=== PATIENT | male | born 1955 | race Caucasian/White ===

== ENCOUNTER 2018-05-30 16:00 | Emergency (ER) | payer BC ==
[~2018-05-30] VITALS: Ht 188 cm; Wt 86.2 kg
[2018-05-30] MEDS ORDERED: CODEINE (16:18)
[2018-05-30] MEDS ORDERED: AMOXICILLIN 500 MG (16:18)
[2018-05-30] MEDS ORDERED: ACETAMINOPHEN (16:18)
[2018-05-30] MEDS ORDERED: IBUPROFEN TAB 600MG (16:18)
[2018-05-30] MEDS ORDERED: OXYCOD/APAP TAB 10-325MG (16:18)
[2018-05-30] MEDS ORDERED: VALSARTAN 80 MG (16:18)
[2018-05-30] MEDS ORDERED: IV NORMAL SALINE 1000 ML BAG IV ONE ×2 (16:45→17:00)
[2018-05-30 17:04] LABS: BASOPHILS % (AUTO) 0.4 % (0.0-2.0); EOSINOPHILS # (AUTO) 0.4 K/uL (0.0-0.7); EOSINOPHILS % (AUTO) 4.3 % (0.0-7.0); HEMATOCRIT 37.9 % (36.7-47.1); HEMOGLOBIN 13.6 g/dL (12.5-16.3); LYMPHOCYTES # (AUTO) 0.6 K/uL (20.0-40.0); LYMPHOCYTES % (AUTO) 5.7 % (20.5-51.5); MEAN CORPUSCULAR HGB CONC 36 g/dL (32.5-36.3); MEAN CORPUSCULAR VOLUME 100.7 fL (73.0-96.2); MONOCYTES # (AUTO) 0.7 K/uL (2.0-10.0); MONOCYTES % (AUTO) 6.5 % (0.0-11.0); NEUTROPHILS # (AUTO) 8.4 K/uL (1.8-8.9); NEUTROPHILS % (AUTO) 83.1 % (38.5-71.5); PLATELET COUNT (AUTO) 125 K/uL (152-348); RED BLOOD CELL COUNT(AUTO) 3.77 MIL/uL (4.06-5.63); WHITE BLOOD COUNT (AUTO) 10.1 K/uL (3.6-10.2)
[2018-05-30 17:05] LABS: POTASSIUM 5.4 mmol/L (3.5-5.1)
[2018-05-30 17:10] LABS: BILIRUBIN,DIRECT 0.2 mg/dL (0.0-0.2); BILIRUBIN,TOTAL 0.8 mg/dL (0.2-1.0); TOTAL PROTEIN, SERUM 7.1 g/dL (6.4-8.2)
[2018-05-30 17:31] LABS: CREATINE KINASE, TOTAL 137 U/L (39-308)
--- NOTE | 2018-05-30 17:33 | NUR ---
Pt back from CT, NAD noted at this time.
--- NOTE | 2018-05-30 17:50 | NUR ---
Repeat labs drawn.
--- NOTE | 2018-05-30 18:05 | NUR ---
Pt ambulated to restroom with steady gait, stated he voided a good amount of urine without difficulty. Urine specimen obtained and sent to lab. Pt stated he felt much better and wants to go home.
[2018-05-30 18:07] LABS: CREATININE 1.7 mg/dL (0.6-1.3); POTASSIUM 5.2 mmol/L (3.5-5.1)
--- NOTE | 2018-05-30 18:15 | NUR ---
IV removed. Catheter intact and site benign. Pressure and 4x4 gauze applied to site. No bleeding noted.
[2018-05-30 18:19] LABS: *BILIRUBIN,URIN NEGATIVE (NEGATIVE); *BLOOD, URINE NEGATIVE (NEGATIVE); *CLARITY,URINE CLEAR (CLEAR); *COLOR,URINE YELLOW (YELLOW); *KETONES,URINE NEGATIVE (NEGATIVE); *PROTEIN,URINE NEGATIVE (NEGATIVE); *UROBILINOGEN,URINE 0.2 E.U./dl (NORMAL); LEUKOCYTE ESTERASE ,URINE NEGATIVE (NEGATIVE); NITRITE, URINE NEGATIVE (NEGATIVE); PH,URINE 6.5 (5.0-8.0); UGLUCOSE NEGATIVE (NEGATIVE)
--- NOTE | 2018-05-30 18:19 | NUR ---
Patient does not wish to proceed with medical care recommended by . Patient given information related to possible complications, up to and including , which could occur as a result of leaving the hospital at this time. Patient verbalizes understanding of risks involved due to leaving against medical advice. Patient has signed AMA form. Pt ambulated out of ER with steady gait with his family.
[2018-05-30 18:23] LABS: MUCUS,URINE FEW /LPF (0-FEW); WBC,URINE 0-3 /HPF (0-3)
== END 2018-05-30 18:21 | disposition home or self-care (01) ==
LOC: ER 16:02
DX: R55 Syncope and collapse (principal); E86.0 Dehydration; N28.9 Disorder of kidney and ureter, unspecified; I10 Essential (primary) hypertension
CPT/HCPCS: 36415; 70450; 71045; 80048 ×2; 80076; 81001; 82550; 83880; 84484; 85025; 93005; 96360; 96361; 99285; A4663; J7030 ×2; 70030-TC